=== PATIENT | female | born 1945 | race Caucasian/White ===

== ENCOUNTER 2019-12-15 16:00 | Outpatient (CLI) | payer MEDICARE, MEDICAID, SELFPAY | END 2019-12-15 16:01 | disposition home or self-care (01) | PROVIDERS: PCP Family Medicine; Visit Provider Internal Medicine | DX: M05.79 Rheumatoid arthritis with rheumatoid factor of multiple sites without organ or systems involvement (principal) | CPT/HCPCS: 36415; 86480 ==